=== PATIENT | female | born 1995 | race Caucasian/White ===

== ENCOUNTER 2018-05-19 23:59 | Emergency (ER) | payer BC, OTHER ==
--- NOTE | 2018-05-20 01:40 | ER ---
Nurse's Notes [facility] Name: Milagros Nation Age: 23 yrs Sex: Female : 1995 Arrival Date: 05/20/2018 Time: 00:01 Bed 24 Private MD: Diagnosis: Laceration without foreign body of scalp Presentation: 05/20 00:28 Presenting complaint: Patient states: that she ran into a piece of glass and cut her fc scalp. Thinks she may need sutures. Transition of care: patient was not received from another setting of care. Onset of symptoms was May 19, 2018 at 23:30. Risk Assessment: Do you want to hurt yourself or someone else? Patient reports no desire to harm self or others. Initial Sepsis Screen: Does the patient meet any 2 criteria? No. Patient's initial sepsis screen is negative. Does the patient have a suspected source of infection? No. Patient's initial sepsis screen is negative. Care prior to arrival: Bleeding of injury controlled. 00:28 Method Of Arrival: Ambulatory fc 00:28 Acuity: KAYLEY 4 Triage Assessment: 00:31 General: Appears comfortable, obese, Behavior is calm, cooperative, appropriate for age. Pain: Complains of pain in top of head Pain currently is 4 out of 10 on a pain scale. Quality of pain is described as aching, Pain began 1 hour ago. Is continuous. EENT: No deficits noted. Neuro: Level of Consciousness is awake, alert, obeys commands, Oriented to person, place, time, situation. Cardiovascular: No deficits noted. Respiratory: No deficits noted. GI: No deficits noted. : No deficits noted. Derm: Skin is pink, warm \T\ dry. Musculoskeletal: Circulation, motion, and sensation intact. Capillary refill < 3 seconds, Range of motion: intact in all extremities. Injury Description: Puncture sustained to top of head and scalp is gaping, was sustained 1-2 hours ago. 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 - Social history:: Smoking status: Patient/guardian denies using tobacco. - Ebola Screening: : Patient negative for fever greater than or equal to 101.5 degrees Fahrenheit, and additional compatible Ebola Virus Disease symptoms Patient denies exposure to infectious person Patient denies travel to an Ebola-affected area in the 21 days before illness onset. Screenin:57 Abuse screen: Denies threats or abuse. Nutritional screening: No deficits noted. mb3 Tuberculosis screening: No symptoms or risk factors identified. Fall Risk None identified. Assessment: 01:55 General: Appears in no apparent distress. comfortable, Behavior is calm, cooperative, mb3 appropriate for age. Pain: Complains of pain in right parietal area. Neuro: No deficits noted. Cardiovascular: No deficits noted. Respiratory: No deficits noted. GI: No deficits noted. Injury Description: Laceration sustained to right parietal area is clean, 0.5 to 2.5 cm long. Vital Signs: 00:30 BP 152 / 79; Pulse 118; Resp 18; Temp 98.4(O); Pulse Ox 98% on R/A; Weight 108.86 kg fc (R); Height 5 ft. 7 in. (170.18 cm) (R); Pain 3/10; 01:57 BP 129 / 57; Pulse 87; Resp 16; Pulse Ox 99% on R/A; mb3 00:30 Body Mass Index 37.59 (108.86 kg, 170.18 cm) ED Course: 00:01 Patient arrived in ED. es 00:29 Triage completed. fc 00:30 Arm band placed on Patient placed in waiting room, Patient notified of wait time. fc 00:47 Juan Levy PA is PHCP. jr8 00:47 Esteban Woods MD is Attending Physician. jr8 01:52 Doroteo Keyes RN is Primary Nurse. mb3 01:56 Assist provider with laceration repair that was 2.5 cm. or less using garth. Set up mb3 tray. Performed by Juan HURTADO Patient tolerated well. Patient did not have IV access during this emergency room visit. 01:58 Patient has correct armband on for positive identification. 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 Exp: mb3 07/18/2020. Lot #: [id number]. } Route: IM; Site: right deltoid; 01:58 Follow up: Response: No adverse reaction mb3 Outcome: 01:40 Discharge ordered by MD. rosa 01:57 Discharged to home ambulatory. mb3 01:57 Condition: stable 01:57 Discharge instructions given to patient, Instructed on discharge instructions, follow up and referral plans. wound care, Demonstrated understanding of instructions, follow-up care, wound care. 01:58 Patient left the ED. mb3 Signatures: Iraida Leon Felicia, RN RN Juan Babin PA PA jr8 Doroteo Keyes RN RN mb3
--- NOTE | 2018-05-20 01:40 | EDPHYS ---
Physician Documentation [facility] Name: Milagros Nation Age: 23 yrs Sex: Female : 1995 Arrival Date: 05/20/2018 Time: 00:01 Bed 24 Private MD: ED Physician Esteban Woods HPI: 05/20 01:36 This 23 yrs old Female presents to ER via Ambulatory with complaints of jr8 laceration head. 01:36 The patient or guardian reports a laceration, 2.5 cm(s), simple. The complaints affect jr8 the right frontal area. Context of injury: The problem was sustained at home, resulted from running into glass. Onset: The symptoms/episode began/occurred acutely, today. Associated signs and symptoms: The patient has no apparent associated signs or symptoms, Loss of consciousness: This patient did not experience any loss of consciousness. Severity of symptoms: At their worst the symptoms were mild, in the emergency department the symptoms are unchanged. The patient has not experienced similar symptoms in the past. The patient has not recently seen a physician. Bent over to pick object up and upon arising hit head on piece of glass causing laceration to head . 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 - Social history:: Smoking status: Patient/guardian denies using tobacco. - Ebola Screening: : Patient negative for fever greater than or equal to 101.5 degrees Fahrenheit, and additional compatible Ebola Virus Disease symptoms Patient denies exposure to infectious person Patient denies travel to an Ebola-affected area in the 21 days before illness onset. ROS: 01:36 Eyes: Negative for injury, pain, redness, and discharge, ENT: Negative for injury, jr8 pain, and discharge, Neck: Negative for injury, pain, and swelling, Cardiovascular: Negative for chest pain, palpitations, and edema, Respiratory: Negative for shortness of breath, cough, wheezing, and pleuritic chest pain, Abdomen/GI: Negative for abdominal pain, nausea, vomiting, diarrhea, and constipation, Back: Negative for injury and pain, MS/Extremity: Negative for injury and deformity, Neuro: Negative for headache, weakness, numbness, tingling, and seizure. 01:36 Skin: Positive for laceration(s). Exam: 01:36 Eyes: Pupils equal round and reactive to light, extra-ocular motions intact. Lids and jr8 lashes normal. Conjunctiva and sclera are non-icteric and not injected. Cornea within normal limits. Periorbital areas with no swelling, redness, or edema. ENT: Nares patent. No nasal discharge, no septal abnormalities noted. Tympanic membranes are normal and external auditory canals are clear. Oropharynx with no redness, swelling, or masses, exudates, or evidence of obstruction, uvula midline. Mucous membranes moist. Neck: Trachea midline, no thyromegaly or masses palpated, and no cervical lymphadenopathy. Supple, full range of motion without nuchal rigidity, or vertebral point tenderness. No Meningismus. Cardiovascular: Regular rate and rhythm with a normal S1 and S2. No gallops, murmurs, or rubs. Normal PMI, no JVD. No pulse deficits. Respiratory: Lungs have equal breath sounds bilaterally, clear to auscultation and percussion. No rales, rhonchi or wheezes noted. No increased work of breathing, no retractions or nasal flaring. Abdomen/GI: Soft, non-tender, with normal bowel sounds. No distension or tympany. No guarding or rebound. No evidence of tenderness throughout. Back: No spinal tenderness. No costovertebral tenderness. Full range of motion. Skin: Warm, dry with normal turgor. Normal color with no rashes, no lesions, and no evidence of cellulitis. MS/ Extremity: Pulses equal, no cyanosis. Neurovascular intact. Full, normal range of motion. Neuro: Awake and alert, GCS 15, oriented to person, place, time, and situation. Cranial nerves II-XII grossly intact. Motor strength 5/5 in all extremities. Sensory grossly intact. Cerebellar exam normal. Normal gait. 01:36 Head/face: Noted is a laceration(s), that is linear, 2.5 cm(s), of the right frontal area. Vital Signs: 00:30 BP 152 / 79; Pulse 118; Resp 18; Temp 98.4(O); Pulse Ox 98% on R/A; Weight 108.86 kg fc (R); Height 5 ft. 7 in. (170.18 cm) (R); Pain 3/10; 01:57 BP 129 / 57; Pulse 87; Resp 16; Pulse Ox 99% on R/A; mb3 00:30 Body Mass Index 37.59 (108.86 kg, 170.18 cm) Laceration: 01:36 Wound Repair of 2.5cm ( 1.0in ) subcutaneous laceration to scalp. Linear shaped.. jr8 Minimal bleeding noted.. Distal neuro/vascular/tendon intact. Wound prep: Extensive cleansing with hibiclenz, Wound irrigation with saline, Wound explored extensively. Skin closed with 3 garth Somerset using staple gun. Patient tolerated well. MDM: 00:48 Patient medically screened. jr8 01:36 Data reviewed: vital signs, nurses notes, and as a result, I will discharge patient. jr8 Data interpreted: Pulse oximetry: on room air is 98 %. Interpretation: normal. Counseling: I had a detailed discussion with the patient and/or guardian regarding: the historical points, exam findings, and any diagnostic results supporting the discharge/admit diagnosis, the need for outpatient follow up, a family practitioner, to return to the emergency department if symptoms worsen or persist or if there are any questions or concerns that arise at home. 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 Exp: mb3 07/18/2020. Lot #: [id number]. } Route: IM; Site: right deltoid; 01:58 Follow up: Response: No adverse reaction mb3 Disposition: 08:59 Co-signature as Attending Physician, Esteban Woods MD I agree with the assessment and juan plan of care. Disposition: 05/20/18 01:40 Discharged to Home. Impression: Laceration without foreign body of scalp. - Condition is Stable. - Discharge Instructions: Laceration Care, Adult, Stitches, Somerset, or Adhesive Wound Closure. - Medication Reconciliation Form, Thank You Letter, Antibiotic Education, Prescription Opioid Use form. - Follow up: Private Physician; When: 1 week; Reason: Wound Recheck, Recheck today's complaints, Continuance of care, Staple/Suture removal, Re-evaluation by your physician. - Problem is new. - Symptoms have improved. Signatures: Esteban Woods MD MD cha Chretien, Felicia, RN RN Juan Babin PA PA jr8 Doroteo Keyes, RN RN mb3 Corrections: (The following items were deleted from the chart) 01:46 01:36 ED course: Patient refused tetanus shot . jr8 jr8 01:58 01:40 05/20/2018 01:40 Discharged to Home. Impression: Laceration without foreign body mb3 of scalp. Condition is Stable. Forms are Medication Reconciliation Form, Thank You Letter, Antibiotic Education, Prescription Opioid Use. Follow up: Private Physician; When: 1 week; Reason: Wound Recheck, Recheck today's complaints, Continuance of care, Staple/Suture removal, Re-evaluation by your physician. Problem is new. Symptoms have improved. jr8
[2018-05-20] MEDS ORDERED: TETANUS & DIPHTHERIA TOX,ADULT 0.5 ML VIAL ONE (01:49)
[2018-05-20 02:02] VITALS: TEMP 98.4
[2018-05-20 02:03] VITALS: BP 129/57; O2SAT 99
== END 2018-05-20 01:58 | disposition home or self-care (01) ==
LOC: ER 23:59
PROC: 0JQ00ZZ Repair Scalp Subcutaneous Tissue and Fascia, Open Approach (ICD-10-PCS; principal; 2018-05-20)
DX: S01.01XA Laceration without foreign body of scalp, initial encounter (principal); W22.8XXA Striking against or struck by other objects, initial encounter; Y93.89 Activity, other specified; Y92.009 Unspecified place in unspecified non-institutional (private) residence as the place of occurrence of the external cause; Z23 Encounter for immunization; Z3A.23 23 weeks gestation of pregnancy
CPT/HCPCS: 90714; 99283

== ENCOUNTER 2018-09-05 05:00 | Inpatient (IN) | payer BC, OTHER ==
[2018-09-04 17:17] LABS: RPR Titer ND
[2018-09-04 17:23] LABS: Absolute Monocytes 0.8 K/uL (0.1-1.3); Absolute Neutrophil 7.2 K/uL (1.8-8.0); Basophils % 0.3 % (0-1.3); Eosinophils % 4.1 % (0-4.4); Lymphocytes % 19.3 % (15.3-44.8); MCH 25.1 pg (27.0-35.0); MCV 77.3 fL (80-100); MPV 8.3 fL (7.6-11.3); Monocytes % 7.2 % (3.3-12.3); RBC Red Blood Cell Count 4.53 M/uL (3.86-4.86)
[2018-09-04 17:28] LABS: Urine Appearance CLEAR; Urine Bilirubin NEGATIVE (NEG); Urine Blood NEGATIVE (NEG); Urine Color YELLOW; Urine Glucose NEGATIVE (NEG); Urine Protein NEGATIVE (NEG); Urine Urobilinogen 0.2 mg/dL (0.2-1.0)
[2018-09-04 17:31] LABS: Urine Microscopic Reflex ORDER UMIC
[2018-09-04 17:33] LABS: Protime INR 0.98
[2018-09-04 17:39] LABS: Urine Bacteria <20 /HPF (<20); Urine Culture Reflex Order REFLEXED; Urine Mucus LIGHT /HPF (NONE SEEN); Urine RBC NONE SEEN /HPF (NONE SEEN)
[2018-09-04 22:19] LABS: RPR (Rapid Plasma Reagin) NON-REACT (NON-REACT)
[2018-09-05] MEDS ORDERED: Ringers Lactate 1,000 ML IV ONE (05:30)
[2018-09-05] MEDS ORDERED: Ringers Lactate 1,000 ML IV PRN (06:05)
[2018-09-05] MEDS ORDERED: METHYLERGONOVINE 0.2MG/ML AMP IM ONE (06:08)
[2018-09-05] MEDS ORDERED: CARBOPROST TROME 250 MCG/ML IM ONE (06:08)
[2018-09-05] MEDS ORDERED: FAMOTIDINE 20 MG/2 ML VIAL IV ONE (06:09)
[2018-09-05] MEDS ORDERED: NA CIT/CITRIC AC 30 ML ORAL UDC PO ONE (06:09)
[2018-09-05] MEDS ORDERED: CEFAZOLIN/SWI 2gm 2 GM/20 ML SYR ONE (06:38)
[2018-09-05] MEDS ORDERED: Ringers Lactate 1,000 ML IV SCH ×2 (07:00→15:00)
[2018-09-05] MEDS ORDERED: METOCLOPRAMIDE 10 MG/2mL INJ IV SCH (07:00)
[2018-09-05] MEDS ORDERED: EPHEDRINE SULF 50 MG/ML SYR ONE (07:17)
[2018-09-05] MEDS ORDERED: MORPHINE SULFATE/PF 1 MG/ML (10 ML AMP) ONE (07:17)
[2018-09-05] MEDS ORDERED: OXYTOCIN 10 UNIT/ML ML IV ONE ×2 (07:17→08:14)
[2018-09-05] MEDS ORDERED: NS 0.9% VIAL 10 ML ONE (07:18)
[2018-09-05 07:19] VITALS: BMI 39.1
[2018-09-05] MEDS ORDERED: Phenylephrine HCl 10 MG/ML 1 ML VIAL ONE (07:44)
[2018-09-05] MEDS ORDERED: MIDAZOLAM HCL 2 MG/2 ML INJ ONE (08:11)
[2018-09-05] MEDS ORDERED: BISACODYL 10 MG RECTAL SUPP RECT PRN (08:34)
[2018-09-05] MEDS ORDERED: ACETAMINOPHEN 500 MG TAB PO PRN ×2 (08:34)
[2018-09-05] MEDS ORDERED: Oxycodone HCl/Acetaminophen 1 TAB TAB PO PRN (08:34)
[2018-09-05] MEDS ORDERED: ONDANSETRON 4 MG (ODT) TAB PO PRN (08:34)
[2018-09-05] MEDS ORDERED: KETOROLAC 30 MG/ML INJ IM PRN (08:34)
[2018-09-05] MEDS ORDERED: KETOROLAC 30 MG/ML INJ IV PRN (08:34)
[2018-09-05] MEDS ORDERED: DIPHENHYDRAMINE 25 MG TAB/CAP PO PRN (08:34)
[2018-09-05] MEDS ORDERED: IBUPROFEN 200 MG TAB PO PRN (08:34)
[2018-09-05] MEDS ORDERED: ONDANSETRON 4 MG/2 ML VIAL IV PRN (08:34)
--- NOTE | 2018-09-05 08:54 | PREOPHP ---
Date of Admission: 09/05/2018 Milagros Nation is a 23-year-old 3, para 2, last 1 for section. For section t his time baby's also been breached basically the last 2 months of the . Still seems breech today. Infection, blood loss, anesthetic complications, injury to bladder, bowel, ureter, postop com plications, clots in legs, pneumonia. The patient knows fully well, this does not constitute. All t he problems that could occur during or following surgery. Knows also the baby could rotate after ton ight, but we will proceed with anyway since this is a repeat. Family History: Maternal grandmother with bone cancer. Maternal grandfather with prostate cancer. Allergies: NO ALLERGIES. Medications: No medications prior to admission other than vitamins and iron. Social History: She smokes half a pack a day. Physical Examination: HEENT: Clear. Pupils equal, round, and reactive to light and accommodation. Conjunctivae well perf used. No oral, lingual, or buccal lesions. Chest and Lungs: Clear. Heart: Without murmurs, thrills, heaves, or rubs. Breasts: Without masses on previous visits. Abdomen: Very large. Baby is probably in the 8.5 to 9.5 pounds range female. Finger tip cervix, pr esenting part is still high. Extremities: Clear without major edema, cyanosis, or clubbing. Plan: We will proceed with section tomorrow at 39 weeks. JOANN/SATHYA Voice ID: [id number]
[2018-09-05] MEDS ORDERED: CEFAZOLIN/SWI 2gm 2 GM/20 ML SYR IV SCH (09:00)
[2018-09-05] MEDS ORDERED: CEFAZOLIN 2 GM in NA CHLORIDE 0.9% 100 ML IVPB SCH (09:00)
[2018-09-05] MEDS ORDERED: D5LR 1,000 ML with OXYTOCIN 20 UNIT IV SCH ×2 (09:00)
[2018-09-05] MEDS: OXYTOCIN/LR 20 UNIT/1,000 ML BAG IV SCH ×2 (09:00→12:45)
[2018-09-05] MEDS ORDERED: PROMETHAZINE 25 MG/ML VIAL IV PRN (09:23)
[2018-09-05] MEDS ORDERED: CEFAZOLIN/SWI 2gm 2 GM/20 ML SYR IV ONE (15:30)
--- NOTE | 2018-09-05 16:39 | OP ---
Surgeon: Chas Yu MD A 23-year-old 3, para 2, previous sections. For repeat section. Baby has been breech during the entire last 7-8 weeks of the . Full preoperative counseling concerni ng procedure including infection, blood loss, anesthetic complications injury to bladder, bowel, uret er, postoperative complications, clots in legs, pneumonia. The patient knows fully well this does no t constitute all the possible problems that could occur during or following surgery. Anesthesia: Spinal block anesthesia. Dr. Ingram and group. Trim Die Maker Surgeon: Dr. Buchanan. Procedure In Detail: After prepping and draping, timeout was performed. Pfannenstiel incision was t hen created. Incision was carried to the fascia. The fascia was incised and incision carried transv ersely bilaterally. Small bleeders were fulgurated. Rectus muscles were . Peritoneum ente red bluntly. Low-transverse uterine incision created. The lower uterine segment was noted to be nancy y thin. At this time, an 8 pound 5 ounce female was delivered without difficulties, Apgars 9 and 9, from a vertex position. This was discussed with the patient. Placenta was removed manually. Uterus cleared of clot and blood and exteriorized. Cervical os was dilated with ring clamp. Uterus closed with a running-locked stitch of 1 chromic, followed by 2 stitches in the right angle for complete he mostasis. Estimated blood loss during procedure 850 cc. Gutters cleared of clot and blood. Uterus was replaced in the peritoneal cavity. No further bleeding seen along the suture lines. The muscles were reapproximated using 0 Vicryl, 3 sutures. Fascia was reapproximated with 1 PDS running from ei ther angle to the midline. Subcutaneous tissue brought together with 2-0 plain. Absorbable garth placed and then metal garth. The patient had been given 2 g of Ancef. Tolerated all procedures we ll, was transferred back to her room in good condition. Final Diagnoses: 1.Term intrauterine . 2.Repeat section. 3.Spinal block anesthesia. 4.Thin lower uterine segment. JOANN/SATHYA Voice ID: [id number] Report ID: [id number]
[2018-09-06] MEDS ORDERED: Rho(D) IG (HUMAN) 300 MCG SYR IM ONE (00:14)
[2018-09-06] MEDS ORDERED: MAGNESIUM HYDROXIDE 8% 30 ML PO PRN (08:34)
[2018-09-06] MEDS: Oxycodone HCl/Acetaminophen 1 TAB TAB PO PRN (19:39)
[2018-09-07] MEDS: Oxycodone HCl/Acetaminophen 1 TAB TAB PO PRN ×2 (00:54→07:06)
[2018-09-07 05:23] VITALS: TEMP 97.5
[2018-09-07 07:30] VITALS: BP 128/70
[2018-09-07 20:02] LABS: HBsAG Nonreactive (Nonreactive)
--- NOTE | 2018-09-09 09:37 | OP ---
Date of Discharge: 09/07/2018 Hospital Course: Postoperatively, patient done quite well. Output is good. Vital signs are stable. Lochia is normal. No post spinal block problems. Full postoperative talk given. She already ambu lated. We will discontinue her Frazier and IV. Start p.o. intake. She will be dismissed tomorrow alicia barron. Dr. Buchanan will see if she has any problems. I dictate dismissal summary today and write a pre scription for pain medicine, but if any problems she will go over that tomorrow. She knows to call m y office Sunday for followup visit to remove her garth. She received RhoGAM, will receive flu shot before she leaves. She has had her Tdap immunization. Final Diagnoses: 1.Term intrauterine . 2.Repeat section. 3.RhoGAM administered. 4.Flu shot offered. JOANN/SATHYA Voice ID: [id number] Report ID: [id number]
[2018-09-11] MEDS ORDERED: IBUPROFEN 200 MG TAB PO PRN (08:35)
== END 2018-09-07 10:15 | disposition home or self-care (01) | DRG 788 ==
LOC: 2ND-WC 05:00
PROVIDERS: ADMIT Specialist; ATTEND Specialist
PROC: 10D00Z1 Extraction of Products of Conception, Low, Open Approach (ICD-10-PCS; principal; 2018-09-05 07:30)
PROC: 3E0234Z Introduction of Serum, Toxoid and Vaccine into Muscle, Percutaneous Approach (ICD-10-PCS; 2018-09-06)
DX: O32.1XX0 Maternal care for breech presentation, not applicable or unspecified (principal); O34.211 Maternal care for low transverse scar from previous cesarean delivery; O99.334 Smoking (tobacco) complicating childbirth; F17.210 Nicotine dependence, cigarettes, uncomplicated; O99.824 Streptococcus B carrier state complicating childbirth; Z3A.39 39 weeks gestation of pregnancy; Z37.0 Single live birth; O26.893 Other specified pregnancy related conditions, third trimester; Z67.91 Unspecified blood type, Rh negative; Z23 Encounter for immunization
CPT/HCPCS: 36415; 81003; 81015; 85014; 85025; 85461; 85610; 85730; 86592; 86850; 86900; 86901; 87086; 87088; 87340; 88307; J0690; J2250; J2370; J2405; J2550; J2590; J2765; J2790

== ENCOUNTER 2019-07-27 16:20 | Emergency (ER) | payer BC, OTHER ==
--- NOTE | 2019-07-27 16:58 | ER ---
Nurse's Notes [facility] Name: Milagros Nation Age: 24 yrs Sex: Female : 1995 Arrival Date: 07/27/2019 Time: 16:21 Bed 12 Private MD: Diagnosis: Bitten by dog Presentation: 07/27 16:34 Presenting complaint: Patient states: "I got bit by a dog." Reports bitten by an ss unknown dog while walking down the street. Patient reports this happened in . Puncture wound to left elbow and right thigh. Transition of care: patient was not received from another setting of care. Onset of symptoms was July 27, 2019 at 15:00. Risk Assessment: Do you want to hurt yourself or someone else? Patient reports no desire to harm self or others. Initial Sepsis Screen: Does the patient meet any 2 criteria? No. Patient's initial sepsis screen is negative. Does the patient have a suspected source of infection? No. Patient's initial sepsis screen is negative. Care prior to arrival: None. 16:34 Method Of Arrival: Ambulatory ss 16:34 Acuity: KAYLEY 4 ss Triage Assessment: 16:51 Bite description: bite sustained to right arm and left leg by a dog, animal ss information: vaccination(s) is unknown. General: Appears in no apparent distress. comfortable, Behavior is calm, cooperative, appropriate for age. Pain: Complains of pain in right arm and left leg. Neuro: Level of Consciousness is awake, alert, obeys commands. Cardiovascular: Patient's skin is warm and dry. Respiratory: Airway is patent Respiratory effort is even, unlabored, Respiratory pattern is regular, symmetrical. 16:51 EENT: No signs and/or symptoms were reported regarding the EENT system. GI: No signs ss and/or symptoms were reported involving the gastrointestinal system. : No signs and/or symptoms were reported regarding the genitourinary system. Derm: Skin is pink, warm \\T\\ dry. normal. Musculoskeletal: Range of motion: intact in all extremities. Injury Description: Puncture sustained to right arm and left leg. 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 - Social history:: Smoking status: Patient uses tobacco products, smokes one-half pack cigarettes per day. - Ebola Screening: : Patient denies travel to an Ebola-affected area in the 21 days before illness onset. Assessment: 18:00 Reassessment: [place] [employer] notified and states that they will have somebody contact patient as ss soon as they have a unit available. Vital Signs: 16:51 BP 131 / 79; Pulse 93; Resp 18; Temp 97.2; Pulse Ox 99% on R/A; Weight 108.41 kg (R); ss Height 5 ft. 7 in. (170.18 cm) (R); Pain 8/10; 16:51 Body Mass Index 37.43 (108.41 kg, 170.18 cm) ss ED Course: 16:21 Patient arrived in ED. as 16:29 Anjali Qiu FNP-C is PSYCHIATRICP. kb 16:29 Byron Romero MD is Attending Physician. kb 16:51 Triage completed. ss 16:51 Arm band placed on Patient placed in waiting room, Patient notified of wait time. ss 16:58 Wound care: to puncture was cleaned with Hibiclens, dressed with 4X4s, XI wrap. ss 18:10 No provider procedures requiring assistance completed. Patient did not have IV access ss during this emergency room visit. Administered Medications: 18:09 Drug: Augmentin 875 mg Route: PO; ss 18:09 Follow up: Response: Medication administered at discharge. Outcome: 16:57 Discharge ordered by . kb 18:10 Discharged to home ambulatory. ss 18:10 Condition: good 18:10 Discharge instructions given to patient, Instructed on discharge instructions, follow up and referral plans. medication usage, Demonstrated understanding of instructions, follow-up care, medications, wound care, Prescriptions given X 1. 18:10 Patient left the ED. ss Signatures: Anjali Qiu FNP-C FNP-Ckb Martinez, Amelia as Smirch, Shelby, ANDRES RN ss
--- NOTE | 2019-07-27 16:58 | EDPHYS ---
Physician Documentation [facility] Name: Milagros Nation Age: 24 yrs Sex: Female : 1995 Arrival Date: 07/27/2019 Time: 16:21 Bed 12 Private MD: ED Physician Byron Romero HPI: 07/27 16:56 This 24 yrs old Female presents to ER via Ambulatory with complaints of Dog kb Bite. 16:56 The patient was bitten on the lateral aspect of right thigh and palmar aspect of right kb forearm, by a dog, in an unprovoked manner, pt was walking down the street when dog approached, outdoors. Onset: The symptoms/episode began/occurred 1 hour(s) ago. Animal information: Patient/Caregiver unable to provide information related to the animal. Secondary to the bite the patient reports swelling. Associated signs and symptoms: Pertinent positives: pain at site, swelling at site. Severity of symptoms: At their worst the symptoms were moderate, in the emergency department the symptoms are unchanged. The patient has not experienced similar symptoms in the past. The patient has not recently seen a physician. 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 - Social history:: Smoking status: Patient uses tobacco products, smokes one-half pack cigarettes per day. - Ebola Screening: : Patient denies travel to an Ebola-affected area in the 21 days before illness onset. ROS: 16:54 Constitutional: Negative for fever, chills, and weight loss, Cardiovascular: Negative kb for chest pain, palpitations, and edema, Respiratory: Negative for shortness of breath, cough, wheezing, and pleuritic chest pain, Abdomen/GI: Negative for abdominal pain, nausea, vomiting, diarrhea, and constipation, MS/Extremity: Negative for injury and deformity, Neuro: Negative for headache, weakness, numbness, tingling, and seizure. 16:54 Skin: Positive for puncture, swelling, of the palmar aspect of right forearm and lateral aspect of right thigh. Exam: 16:54 Constitutional: This is a well developed, well nourished patient who is awake, alert, kb and in no acute distress. Head/Face: Normocephalic, atraumatic. Neck: Trachea midline, no thyromegaly or masses palpated, and no cervical lymphadenopathy. Supple, full range of motion without nuchal rigidity, or vertebral point tenderness. No Meningismus. Chest/axilla: Normal chest wall appearance and motion. Nontender with no deformity. No lesions are appreciated. Cardiovascular: Regular rate and rhythm with a normal S1 and S2. No gallops, murmurs, or rubs. Normal PMI, no JVD. No pulse deficits. Respiratory: Lungs have equal breath sounds bilaterally, clear to auscultation and percussion. No rales, rhonchi or wheezes noted. No increased work of breathing, no retractions or nasal flaring. Abdomen/GI: Soft, non-tender, with normal bowel sounds. No distension or tympany. No guarding or rebound. No evidence of tenderness throughout. MS/ Extremity: Pulses equal, no cyanosis. Neurovascular intact. Full, normal range of motion. Neuro: Awake and alert, GCS 15, oriented to person, place, time, and situation. Cranial nerves II-XII grossly intact. Motor strength 5/5 in all extremities. Sensory grossly intact. Cerebellar exam normal. Normal gait. 16:54 Skin: injury, bite(s), of the lateral aspect of right thigh and palmar aspect of right forearm, swelling and 2 puncture wounds to right proximal, posterior forearm. 2 puncture wounds to right lateral thigh. Vital Signs: 16:51 BP 131 / 79; Pulse 93; Resp 18; Temp 97.2; Pulse Ox 99% on R/A; Weight 108.41 kg (R); ss Height 5 ft. 7 in. (170.18 cm) (R); Pain 8/10; 16:51 Body Mass Index 37.43 (108.41 kg, 170.18 cm) ss MDM: 16:54 Patient medically screened. kb 16:54 Data reviewed: vital signs, nurses notes. Data interpreted: Pulse oximetry: on room air kb is 99 %. Interpretation: normal. Counseling: I had a detailed discussion with the patient and/or guardian regarding: the historical points, exam findings, and any diagnostic results supporting the discharge/admit diagnosis, the need for outpatient follow up, a family practitioner, to return to the emergency department if symptoms worsen or persist or if there are any questions or concerns that arise at home. Administered Medications: 18:09 Drug: Augmentin 875 mg Route: PO; ss 18:09 Follow up: Response: Medication administered at discharge. ss Disposition: 18:22 Co-signature as Attending Physician, Byron Romero MD. rn Disposition: 07/27/19 16:57 Discharged to Home. Impression: Bitten by dog. - Condition is Stable. - Discharge Instructions: Animal Bite, [id number]. - Prescriptions for Augmentin 875- 125 mg Oral Tablet - take 1 tablet by ORAL route every 12 hours for 10 days; 20 tablet. - Medication Reconciliation Form, Thank You Letter, Antibiotic Education, Prescription Opioid Use form. - Follow up: Emergency Department; When: As needed; Reason: Worsening of condition. Follow up: Private Physician; When: 2 - 3 days; Reason: Recheck today's complaints, Continuance of care, Re-evaluation by your physician. Signatures: Anjali Qiu, MINNIE-C POTASH FLAKER-Byron Husain MD MD rn Gayle Warren RN RN ss Corrections: (The following items were deleted from the chart) 18:10 16:57 07/27/2019 16:57 Discharged to Home. Impression: Bitten by dog. Condition is ss Stable. Forms are Medication Reconciliation Form, Thank You Letter, Antibiotic Education, Prescription Opioid Use. Follow up: Emergency Department; When: As needed; Reason: Worsening of condition. Follow up: Private Physician; When: 2 - 3 days; Reason: Recheck today's complaints, Continuance of care, Re-evaluation by your physician. kb
[2019-07-27] MEDS ORDERED: AMOX/K CLAV 875 MG TAB ONE ×2 (18:04→18:06)
[2019-07-27 21:26] VITALS: BP 131/79; TEMP 97.2; O2SAT 99
== END 2019-07-27 18:10 | disposition home or self-care (01) ==
LOC: ER 16:20
DX: S51.831A Puncture wound without foreign body of right forearm, initial encounter (principal); S71.131A Puncture wound without foreign body, right thigh, initial encounter; W54.0XXA Bitten by dog, initial encounter; Y93.89 Activity, other specified; Y92.410 Unspecified street and highway as the place of occurrence of the external cause; F17.210 Nicotine dependence, cigarettes, uncomplicated
CPT/HCPCS: 99283

== ENCOUNTER 2021-06-27 21:52 | Emergency (ER) | payer BC, SELFPAY ==
[2021-06-27] MEDS ORDERED: IBUPROFEN 400 MG TAB ONE (23:06)
--- NOTE | 2021-06-28 02:17 | ER ---
Nurse's Notes [facility] Name: Milagros Nation Age: 26 yrs Sex: Female : 1995 Arrival Date: 06/27/2021 Time: 22:01 Bed Waiting Private MD: Diagnosis: Sprain of ankle-right Presentation: 06/27 22:45 Chief complaint: Patient states: she was walking to the kitchen and twisted her right bb ankle hearing a pop now it is swollen and painful. Coronavirus screen: At this time, the client does not indicate any symptoms associated with coronavirus-19. Ebola Screen: No symptoms or risks identified at this time. Initial Sepsis Screen: Does the patient meet any 2 criteria? No. Patient's initial sepsis screen is negative. Does the patient have a suspected source of infection? No. Patient's initial sepsis screen is negative. Risk Assessment: Do you want to hurt yourself or someone else? Patient reports no desire to harm self or others. Onset of symptoms was June 27, 2021. 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 - Social history:: Smoking status: Patient reports the use of cigarette tobacco products, smokes one-half pack cigarettes per day, Patient/guardian denies using alcohol, street drugs. Screenin/10 02:21 Abuse screen: Denies threats or abuse. Nutritional screening: No deficits noted. bb Tuberculosis screening: No symptoms or risk factors identified. Fall Risk None identified. Assessment: 02:21 General: Appears in no apparent distress. uncomfortable, Behavior is calm, cooperative. bb Pain: Complains of pain in right ankle. Neuro: Level of Consciousness is awake, alert, obeys commands, Oriented to person, place, time, situation. Cardiovascular: Capillary refill < 3 seconds Patient's skin is warm and dry. Respiratory: Respiratory effort is even, unlabored, Respiratory pattern is regular. GI: No signs and/or symptoms were reported involving the gastrointestinal system. Derm: Skin is pink, warm \T\ dry. Musculoskeletal: Circulation, motion, and sensation intact. Swelling present in right ankle Reports pain in right ankle. 02:22 Reassessment: Patient is alert, oriented x 3, equal unlabored respirations, skin bb warm/dry/pink. walking boot in place pt states it is more comfortable verbalized understanding of and agrees to plan of care discharge instructions given pt ambulated to exit with walking boot. Vital Signs: 06/27 22:45 BP 137 / 76; Pulse 103; Resp 16 S; Temp 98.9(TE); Pulse Ox 100% on R/A; Weight 108.41 bb kg (R); Height 5 ft. 7 in. (170.18 cm) (R); Pain 6/10; 22:45 Body Mass Index 37.43 (108.41 kg, 170.18 cm) bb ED Course: 22:01 Patient arrived in ED. es 22:47 Triage completed. bb 22:47 Arm band placed on Patient placed in waiting room, Patient notified of wait time. X-ray bb ordered. Family accompanied patient. 23:39 XRAY Ankle RIGHT 3 view In Process Unspecified. EDGA 06/28 02:07 [facility] cp 02:07 Esteban Woods MD is Attending Physician. cp 02:16 Arnel Hess MD is Referral Physician. cp 02:21 Patient has correct armband on for positive identification. bb 02:21 No provider procedures requiring assistance completed. Patient did not have IV access bb during this emergency room visit. Administered Medications: 06/27 22:45 Drug: Tylenol 1000 mg Route: PO; bb 06/28 02:18 Follow up: Response: No adverse reaction bb Outcome: 02:17 Discharge ordered by . cp 02:23 Discharged to home ambulatory. bb 02:23 Condition: stable 02:23 Discharge instructions given to patient, Instructed on discharge instructions, follow up and referral plans. medication usage, Demonstrated understanding of instructions, follow-up care, medications, Prescriptions given X 1. 02:23 Patient left the ED. bb Signatures: Dispatcher [employer] EDGA Iraida Leon Brenda, RN RN bb Esteban Jones PA PA cp
--- NOTE | 2021-06-28 02:18 | EDPHYS ---
Physician Documentation [facility] Name: Milagros Nation Age: 26 yrs Sex: Female : 1995 Arrival Date: 06/27/2021 Time: 22:01 Bed Waiting Private MD: Esteban Mayberry HPI: 06/28 02:09 This 26 yrs old Female presents to ER via Other with complaints of Ankle cp Injury. 02:09 The patient presents with an injury, pain, that is acute, swelling, tenderness. The cp complaints affect the right ankle. Onset: The symptoms/episode began/occurred last night. Context: The mechanism of injury involved inversion of the affected ankle. The patient can partially bear weight on the affected extremity. the patient is able to ambulate, with moderate difficulty, can ambulate using crutches, resulted from misstep while walking in clinic. Associated signs and symptoms: Pertinent positives: swelling, Pertinent negatives: calf tenderness, numbness. Modifying factors: the symptoms are aggravated by movement. 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 - Social history:: Smoking status: Patient reports the use of cigarette tobacco products, smokes one-half pack cigarettes per day, Patient/guardian denies using alcohol, street drugs. ROS: 06/28 02:12 Constitutional: Negative for body aches, chills, fever, poor PO intake. cp Neck: Negative for pain with movement, pain at rest, stiffness. Back: Negative for pain at rest, pain with movement. MS/extremity: Positive for injury or acute deformity, pain, swelling, tenderness, Negative for paresthesias. Skin: Negative for cellulitis, rash. Neuro: Negative for headache, weakness. All other systems are negative. Exam: 02:13 Head/Face: Normocephalic, atraumatic. cp 02:13 Constitutional: The patient appears in no acute distress, alert, awake, non-toxic, well developed, well nourished. 02:13 Neck: ROM/movement: is normal, is supple, without pain, no range of motions limitations. 02:13 Chest/axilla: Inspection: normal. 02:13 Cardiovascular: Rate: tachycardic. 02:13 Respiratory: the patient does not display signs of respiratory distress, Respirations: normal, no use of accessory muscles, labored breathing, is not present. 02:13 Abdomen/GI: Exam negative for discomfort, distension, guarding, Inspection: abdomen appears normal. 02:13 Musculoskeletal/extremity: Joints: All joints are normal except the right ankle displays painful range of motion, swelling, tenderness, Achilles tendon palpated and intact, no tenderness noted at proximal fibula and/or base of right fifth metatarsal. Vital Signs: 06/27 22:45 BP 137 / 76; Pulse 103; Resp 16 S; Temp 98.9(TE); Pulse Ox 100% on R/A; Weight 108.41 bb kg (R); Height 5 ft. 7 in. (170.18 cm) (R); Pain 6/10; 22:45 Body Mass Index 37.43 (108.41 kg, 170.18 cm) bb Procedures: 06/28 02:20 Splinting: Splint applied to right ankle using walking boot. applied by nurse. Examined cp by me, post splint application: neurovascular intact, Patient tolerated well. MDM: 02:10 Differential diagnosis: fracture, sprain, dislocation. cp 02:15 Data reviewed: vital signs, nurses notes, radiologic studies, plain films, and as a cp result, I will discharge patient. Counseling: I had a detailed discussion with the patient and/or guardian regarding: the historical points, exam findings, and any diagnostic results supporting the discharge/admit diagnosis, radiology results, the need for outpatient follow up, a orthopedic surgeon, to return to the emergency department if symptoms worsen or persist or if there are any questions or concerns that arise at home. Response to treatment: the patient's symptoms have mildly improved after treatment. 02:17 Patient medically screened. cp 06/27 22:48 Order name: XRAY Ankle RIGHT 3 view bb 06/28 02:09 Order name: Walking boot; Complete Time: 02:18 cp Administered Medications: 06/27 22:45 Drug: Tylenol 1000 mg Route: PO; bb 06/28 02:18 Follow up: Response: No adverse reaction bb Disposition: 02:30 Chart complete. cp 09:57 Co-signature as Attending Physician, Esteabn Woods MD I agree with the assessment and juan plan of care. Disposition Summary: 06/28/21 02:17 Discharge Ordered Location: Home cp Problem: new cp Symptoms: have improved cp Condition: Stable cp Diagnosis - Sprain of ankle - right cp Followup: cp - With: Arnel Hess MD - When: 1 week - Reason: Recheck today's complaints Discharge Instructions: - Discharge Summary Sheet cp - Ankle Sprain cp - RICE Therapy for Routine Care of Injuries cp Forms: - Medication Reconciliation Form cp - Thank You Letter cp - Antibiotic Education cp - Prescription Opioid Use cp Prescriptions: - Ibuprofen 800 mg Oral Tablet - take 1 tablet by ORAL route every 8 hours As needed take with food; 30 tablet; cp Refills: 0, Product Selection Permitted Signatures: Dispatcher [employer] Esteban Lopez MD MD cha Ballard, Brenda, RN RN Esteban Jiménez PA PA cp
[2021-06-28 02:30] VITALS: BP 137/76; TEMP 98.9; O2SAT 100
--- NOTE | 2021-06-28 08:28 | RAD REPORT ---
EXAM DESCRIPTION: RAD - Ankle Right 3 View - 06/27/2021 11:40 pm COMPARISON: None. FINDINGS: No fracture, dislocation or periosteal reaction. No joint effusion seen. No joint space na rrowing. Lateral soft tissue swelling is present. IMPRESSION: Soft tissue swelling with no right ankle fracture.
== END 2021-06-28 02:23 | disposition home or self-care (01) ==
LOC: ER 21:52
DX: S93.401A Sprain of unspecified ligament of right ankle, initial encounter (principal); F17.210 Nicotine dependence, cigarettes, uncomplicated
CPT/HCPCS: 99283

== ENCOUNTER 2021-11-25 09:23 | Emergency (ER) | payer SELFPAY ==
--- OUTSIDE RECORDS SUMMARY | 2021-11-25 09:26 | XMS REPORT | Continuity of Care Document ---
:1995 Author Organization [facility] t Address [address] [place] [address] [address] [place] [address] Care Team Providers Name Role Phone Pcp, Does Not Have A Primary Care Physician Rajan GONZALEZ Attending Clinician Unavailable Doctor Unassigned, Name Attending Clinician Unavailable Problems Condition Condition Condition Status Onset Resolution Last Treating Co mments Source Name Details Category Date Date Treatment Clinician Date No known No known Disease Unive rs active active ity of problems problems [facility] Allergies, Adverse Reactions, Alerts Allergy Allergy Status Severity Reaction(s) Onset Inactive Treating Comm ents Source Name Type Date Date Clinician NO KNOWN Drug Active [facility] ALLERGIE Class ity of [facility] Social History Social Habit Start Date Stop Date Quantity Comments Source Exposure to Not sure [facility] SARS-CoV-2 (event) Medica [facility] Branch Sex Assigned At [birth year] [facility] 00:00:00 00:00:00 [facility] Smoking Status Start Date Stop Date Source Unknown if ever smoked [facility] Medications Ordered Filled Start Stop Current Ordering Indication Dosage Frequency Signature Comments Components Source Medication Medication Date Date Medication? Clinician (SIG) Name Name No known No [facility] medications [facility] No known No [facility] medications [facility] Procedures Procedure Date / Time Performing Clinician Source Performed PATIENT FINANCIAL 2021-07-06 05:01:00 Doctor Unassigned, [facility] RESPONSIBILITY - ALL [facility] FORMS Encounters Start End Encounter Admission Attending Care Care Encounter Source Date/Time Date/Time Type Type Clinicians Facility Department ID 2021-07-07 2021-07-07 Outpatient R ROBIN GONZALEZ [facility] [id number] [facility] 09:45:00 09:45:00 DIPTI [id number] [facility] 2021-07-07 2021-07-07 Outpatient Ela GONZALEZ [facility] [id number] [facility] 09:45:00 09:45:00 [facility] 2021-07-06 2021-07-06 Outpatient Ela GONZALEZ [facility] [id number] [facility] 14:45:00 14:45:00 DIPTI [id number] [facility] 2021-07-06 2021-07-06 [facility] [id number] [facility] 14:45:00 14:45:00 [facility] 2021-07-06 2021-07-06 Orders Doctor KUMAR [id number] [facility] 00:00:00 00:00:00 Only Unassigned, DEEJAY [id number] [facility] [id number] Ashwin as [phone] [address] 2021-07-04 2021-07-04 [facility] [id number] [facility] 14:45:00 14:45:00 [facility] Results This patient has no known results.
[2021-11-25 10:36] LABS: Urine Blood 3+ (Negative); Urine Glucose Negative (Negative); Urine Protein Negative (Negative); Urine Specific Gravity 1.025 (1.005-1.030); Urine pH 5.5 (5.0-7.0)
[2021-11-25 11:44] LABS: Absolute Lymphocytes (CBC) 2.2 K/uL (0.7-4.9); Hematocrit 42.3 % (36.0-45.0); Lymphocytes % 23.4 % (15.3-44.8); MPV 7.7 fL (7.6-11.3); RBC Red Blood Cell Count 5.21 M/uL (3.86-4.86)
[2021-11-25 11:45] LABS: Urine Specific Gravity/Preg 1.025 (1.005-1.030)
--- NOTE | 2021-11-25 14:28 | RAD REPORT ---
EXAM DESCRIPTION: CTAbdomen Pelvis W Contrast - 11/25/2021 2:14 pm CLINICAL HISTORY: RLQ pain;Abd pain COMPARISON: No comparisons TECHNIQUE: CT of the abdomen and pelvis was performed. All CT scans are performed using dose optimization technique as appropriate and may include automated exposure control or mA/KV adjustment according to patient size. FINDINGS: Lower chest: No acute abnormality. Liver: No acute abnormality or suspicious lesions. Biliary: No biliary ductal dilatation. Stomach: No significant focal abnormality. Duodenum: No significant focal abnormality. Pancreas: No significant abnormality. Spleen: No significant abnormality. Adrenal: No suspicious lesions. Kidney/ureter: No hydronephrosis. No renal calculi. Retroperitoneum: No retroperitoneal adenopathy. Vascular: No aneurysm. Bowel: No significant focal abnormality. Normal appendix. Peritoneum: No ascites or free air. Bladder: Grossly unremarkable. Reproductive: No adnexal masses. Bones: No acute fracture. Other: Soft-tissue structure in the right lower abdominal wall measuring 3.2 cm. This is likely along the patient's prior site. IMPRESSION: No acute intra-abdominal or pelvic finding. Normal appendix . Nonspecific soft tissue mass in the right lower abdominal wall could be surgical changes from a prior . Depending on the patient's symptoms, and endometriosis implant in the scar coul d appear similar. Pelvic MRI with and without contrast could further evaluate if clinically indicated .
--- NOTE | 2021-11-25 14:57 | ER ---
Nurse's Notes [facility] Name: Milagros Nation Age: 26 yrs Sex: Female : 1995 Arrival Date: 11/25/2021 Time: 09:28 Bed 11 Private MD: Diagnosis: Lower abdominal pain, unspecified Presentation: 11/25 10:10 Chief complaint: Patient states: my lower right side and has been hurting since tw2 yesterday morning. it even is sore to the touch. i am nauseous. Coronavirus screen: At this time, the client does not indicate any symptoms associated with coronavirus-19. Ebola Screen: Patient denies travel to an Ebola-affected area in the 21 days before illness onset. Initial Sepsis Screen: Does the patient meet any 2 criteria? No. Patient's initial sepsis screen is negative. Does the patient have a suspected source of infection? No. Patient's initial sepsis screen is negative. Risk Assessment: Do you want to hurt yourself or someone else? Patient reports no desire to harm self or others. Onset of symptoms was November 25, 2021. 10:10 Method Of Arrival: Ambulatory tw2 10:10 Acuity: KAYLEY 3 tw2 Triage Assessment: 10:12 General: Appears in no apparent distress. uncomfortable, Behavior is calm, cooperative, tw2 appropriate for age. Pain: Complains of pain in right lower quadrant Pain radiates to back. GI: Reports lower abdominal pain, nausea. 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 - Social history:: Smoking status: Patient reports the use of cigarette tobacco products, smokes one-half pack cigarettes per day. Screenin:34 Abuse screen: Denies threats or abuse. Denies injuries from another. Nutritional jh5 screening: No deficits noted. Tuberculosis screening: No symptoms or risk factors identified. Fall Risk None identified. Assessment: 10:33 General: Appears in no apparent distress. comfortable, obese, Behavior is calm, jh5 cooperative, appropriate for age. Pain: Complains of pain in right lower quadrant Quality of pain is described as stabbing. Neuro: No deficits noted. Cardiovascular: No deficits noted. Respiratory: No deficits noted. GI: Bowel sounds present X 4 quads. Abd is soft. Vital Signs: 10:10 BP 130 / 77; Pulse 84; Resp 17; Temp 97.8(TE); Pulse Ox 98% on R/A; Weight 97.98 kg; tw2 Height 5 ft. 7 in. (170.18 cm); Pain 8/10; 10:10 Body Mass Index 33.83 (97.98 kg, 170.18 cm) tw2 ED Course: 09:28 Patient arrived in ED. as 10:11 Triage completed. tw2 10:12 Arm band placed on. tw2 10:32 Juan Levy PA is PHCP. 8 10:32 Elie Veloz MD is Attending Physician. [facility] 10:33 Celia Colorado, RN is Primary Nurse. [facility] 10:34 Patient has correct armband on for positive identification. Call light in reach. Side [facility] rails up X 1. 10:54 Inserted saline lock: 22 gauge in right antecubital area, using aseptic technique. tp1 Blood collected. 14:14 CT Abd/Pelvis - IV Contrast Only In Process Unspecified. EDMS 14:47 No provider procedures requiring assistance completed. IV discontinued, intact, jh5 bleeding controlled, No redness/swelling at site. Pressure dressing applied. 15:02 IV discontinued, intact, bleeding controlled, No redness/swelling at site. Pressure 4 dressing applied. Administered Medications: No medications were administered Outcome: 14:48 Discharged to home ambulatory. [facility] 14:48 Condition: good 14:48 Discharge instructions given to patient, Instructed on discharge instructions, follow up and referral plans. safety practices, Demonstrated understanding of instructions, follow-up care. 14:56 Discharge ordered by . [facility] 15:07 Patient left the ED. [facility] Signatures: Dispatcher [employer] EDMS Elizabeth Kirkland Josh, PA PA jr8 Kenya Banks RN RN tw2 Jennie Al mb4 Celia Colorado, ANDRES RN 5 [place] tp1
--- NOTE | 2021-11-25 14:57 | EDPHYS ---
Physician Documentation [facility] Name: Milagros Nation Age: 26 yrs Sex: Female : 1995 Arrival Date: 11/25/2021 Time: 09:28 Bed 11 Private MD: ED Physician Elie Veloz HPI: 11/25 12:17 This 26 yrs old Female presents to ER via Ambulatory with complaints of Abdominal Pain. jr8 12:17 The patient presents with abdominal pain right lower quadrant. Onset: The jr8 symptoms/episode began/occurred acutely, today. The symptoms do not radiate. Associated signs and symptoms: none. The symptoms are described as stabbing. Modifying factors: The symptoms are alleviated by nothing, the symptoms are aggravated by nothing. Severity of pain: At its worst the pain was moderate in the emergency department the pain is unchanged. The patient has not experienced similar symptoms in the past. The patient has not recently seen a physician. Patient stated that she is also on menstrual cycle but feels that it is normal in timing and degree of bleeding . [employer]: 10:13 LMP 11/25/2021 tw2 Historical: - Allergies: 10:12 No Known Allergies; tw2 - Home Meds: 10:12 None [Active]; tw2 - PMHx: 10:12 None; tw2 - PSHx: 10:12 section; tw2 - Immunization history:: Client reports receiving the 2nd dose of the Covid vaccine, Flu vaccine is not up to date. - Social history:: Smoking status: Patient reports the use of cigarette tobacco products, smokes one-half pack cigarettes per day. ROS: 12:17 Eyes: Negative for injury, pain, redness, and discharge, ENT: Negative for injury, jr8 pain, and discharge, Neck: Negative for injury, pain, and swelling, Cardiovascular: Negative for chest pain, palpitations, and edema, Respiratory: Negative for shortness of breath, cough, wheezing, and pleuritic chest pain, Back: Negative for injury and pain, MS/Extremity: Negative for injury and deformity, Skin: Negative for injury, rash, and discoloration, Neuro: Negative for headache, weakness, numbness, tingling, and seizure. 12:17 Abdomen/GI: Positive for abdominal pain, Negative for nausea, vomiting, and diarrhea. Exam: 12:17 Constitutional: This is a well developed, well nourished patient who is awake, alert, jr8 and in no acute distress. Cardiovascular: Regular rate and rhythm with a normal S1 and S2. No gallops, murmurs, or rubs. Normal PMI, no JVD. No pulse deficits. Respiratory: Lungs have equal breath sounds bilaterally, clear to auscultation and percussion. No rales, rhonchi or wheezes noted. No increased work of breathing, no retractions or nasal flaring. Back: No spinal tenderness. No costovertebral tenderness. Full range of motion. Skin: Warm, dry with normal turgor. Normal color with no rashes, no lesions, and no evidence of cellulitis. MS/ Extremity: Pulses equal, no cyanosis. Neurovascular intact. Full, normal range of motion. Neuro: Awake and alert, GCS 15, oriented to person, place, time, and situation. Cranial nerves II-XII grossly intact. Motor strength 5/5 in all extremities. Sensory grossly intact. 12:17 Abdomen/GI: Inspection: obese Bowel sounds: active, all quadrants, Palpation: soft, in all quadrants, moderate abdominal tenderness, in the right lower quadrant, mass, is not appreciated, rebound tenderness, is not appreciated, voluntary guarding, is not appreciated, involuntary guarding, is not appreciated, no appreciated organomegaly, Indicators: McBurney's point is not tender, Louise's sign is negative, Rovsing's sign is negative, Liver: tenderness, is not appreciated. Vital Signs: 10:10 BP 130 / 77; Pulse 84; Resp 17; Temp 97.8(TE); Pulse Ox 98% on R/A; Weight 97.98 kg; tw2 Height 5 ft. 7 in. (170.18 cm); Pain 8/10; 10:10 Body Mass Index 33.83 (97.98 kg, 170.18 cm) tw2 MDM: 10:32 Patient medically screened. jr8 14:49 Data reviewed: vital signs, nurses notes, lab test result(s), radiologic studies, CT jr8 scan. Data interpreted: Pulse oximetry: on room air is 98 %. Interpretation: normal. Counseling: I had a detailed discussion with the patient and/or guardian regarding: the historical points, exam findings, and any diagnostic results supporting the discharge/admit diagnosis, lab results, radiology results, the need for outpatient follow up, a family practitioner, to return to the emergency department if symptoms worsen or persist or if there are any questions or concerns that arise at home. ED course: Discussed findings with patient and need for MRI f/u to discern endometrial implantation of tissue vs scar which could be why she is having the pain where she is in correlation to her menstrual cycle. Patient good with this and will follow up. 11/25 10:35 Order name: Urine Dipstick-Ancillary; Complete Time: 10:48 [facility] 11/25 10:37 Order name: Urine --Ancillary (enter results); Complete Time: 11:47 eb 11/25 10:41 Order name: CBC with Diff; Complete Time: 11:47 ss 11/25 10:48 Order name: CT Abd/Pelvis - IV Contrast Only; Complete Time: 14:46 rust 11/25 14:01 Order name: CREATININE WHOLE BLOOD; Complete Time: 14:08 [facility] 11/25 10:36 Order name: IV Saline Lock; Complete Time: 10:50 [facility] 11/25 10:36 Order name: Labs collected and sent; Complete Time: 10:50 [facility] 11/25 11:23 Order name: Labs - recollect needed: recollect green top; Complete Time: 11:32 eb Administered Medications: No medications were administered Disposition Summary: 11/25/21 14:56 Discharge Ordered Location: Home jr Problem: new jr8 Symptoms: have improved jr8 Condition: Stable jr8 Diagnosis - Lower abdominal pain, unspecified jr8 Followup: jr8 - With: Private Physician - When: 2 - 3 days - Reason: Recheck today's complaints, Continuance of care, Re-evaluation by your physician Discharge Instructions: - Discharge Summary Sheet jr8 - Abdominal Pain, Adult jr8 Forms: - Medication Reconciliation Form jr8 - Thank You Letter jr8 - Antibiotic Education jr8 - Prescription Opioid Use jr8 Addendum: 11/27/2021 16:22 Co-signature as Attending Physician, Elie Veloz MD I agree with the assessment and s p3 plan of care. Signatures: Dis[facility] Juan Levy PA PA jr8 Kenya Banks RN RN tw2 Jackie Caruso Elie Veloz MD MD sp3 Celia Colorado RN RN jh5 Corrections: (The following items were deleted from the chart) 11/25 12:03 11:49 Labs - recollect needed ordered. eunice [email or web address]
[2021-11-25 15:16] VITALS: BP 130/77; TEMP 97.8; O2SAT 98
== END 2021-11-25 15:07 | disposition home or self-care (01) ==
LOC: ER 09:23
DX: R10.31 Right lower quadrant pain (principal); F17.210 Nicotine dependence, cigarettes, uncomplicated
CPT/HCPCS: 36415; 74177; 81003; 81025; 82565; 85025; 99283; Q9967